=== PATIENT | female | born 1970 | race Caucasian/White ===

== ENCOUNTER → 2024-01-14 16:25 | Outpatient (REF) | payer OTHER, SELFPAY | LOC: HWRAD 16:25 | PROVIDERS: ATTENDING PHYSICIAN Student in an Organized Health Care Education/Training Program | DX: S60.012A Contusion of left thumb without damage to nail, initial encounter (principal) | CPT/HCPCS: 73130 ==

== ENCOUNTER → 2024-02-24 18:15 | Outpatient (REF) | payer OTHER, SELFPAY | LOC: RAD 18:15 | PROVIDERS: ATTENDING PHYSICIAN Obstetrics & Gynecology; FAMILY PHYSICIAN Student in an Organized Health Care Education/Training Program | DX: N92.4 Excessive bleeding in the premenopausal period (principal) | CPT/HCPCS: 76830; 76856 ==

== ENCOUNTER → 2024-05-26 14:21 | Outpatient (REF) | payer OTHER, SELFPAY | LOC: RAD 14:21 | PROVIDERS: ATTENDING PHYSICIAN Internal Medicine | DX: R10.30 Lower abdominal pain, unspecified (principal) | CPT/HCPCS: 74177; Q9967 ==

== ENCOUNTER 2024-06-01 19:27 | Inpatient (IN) | payer OTHER, SELFPAY ==
[2024-06-01 12:18] VITALS: BP 143/83
--- NOTE | 2024-06-01 13:24 | ED.GENMED ---
History of Present Illness
<Leola Linares PA-C - Last Filed: 06/01/24 21:58>
General
Chief Complaint: Abdominal Symptoms
Source: patient
Exam Limitations: none
Time Seen by Provider: 06/01/24 13:24
Nursing documentation reviewed up to this point in time: agreed with
History of Present Illness
History of Present Illness:
This is a 53-year-old female with past medical history of endometriosis 3 weeks status post hysterectomy presents emergency department today with concerns of abdominal pain. Patient states that this all started a few months ago when she started
having upper abdominal pain and discomfort. Patient does have a history of endometriosis and she did recently have a hysterectomy however she had persistent pain. Patient was referred to a sql developer and had a CAT scan done of her abdomen
as outpatient approximately 7 days ago which showed ileal ileal intussusception without a discrete leak point. Patient follows with Dr. Wall with [facility] and was scheduled to have an upper endoscopy to identify a lead point
in June. However, patient notes that since then, her pain has gotten significantly worse and patient reports that while the pain is constant, she attempts to eat anything this makes the pain severe. Patient reports that she is only eaten 1 egg
per day and not all she can tolerate because of the pain. Patient reports that the pain wakes her up at night. Patient states that she has lost weight this past week because of it. Patient denies any nausea or vomiting, fevers or chills, dark
tarry stools. Patient states that she has had bouts of diarrhea with this as well. Patient states that the pain radiates to her back. Patient states that the pain is worse when she lays down. Patient states at times the pain will radiate into
her chest. Patient denies any shortness of breath.
Past History
<Leola Linares PA-C - Last Filed: 06/01/24 21:58>
Past History
ED Past Medical History: Asthma (Exercised induced)
ED Past Surgical History: (twice) and Other (Partial Thyroidectomy)
Social History
Tobacco: Non-smoker
Alcohol: Occasional
Personal:
Living: with family
Review of Systems
<Leola Linares PA-C - Last Filed: 06/01/24 21:58>
Review of Systems
All Other Systems: ROS reviewed and negative except as documented in HPI and ROS
Phy Exam
<Leola Linares PA-C - Last Filed: 06/01/24 21:58>
Physical Exam
Physical Exam:
General: Patient is well appearing and in no acute distress; non-toxic
Skin: Warm and dry, no rashes or lesions
Head: Normocephalic, atraumatic
Eyes: Sclera non-icteric. EOMs intact.
Cardiac: Regular rate and rhythm, no murmurs
Pulm: Normal respiratory effort, no wheezes, rales, or rhonchi
Abdomen: Diffuse abdominal tenderness to palpation worse in the epigastric area, no palpable abdominal mass
Neuro: CN II-XII intact, no focal neurologic deficits.
Psychiatric: Appropriate mood and affect.
Course
<Leola Linares PA-C - Last Filed: 06/01/24 21:58>
Orders/Labs/Results
Orders:
Orders
06/01/24 Breakfast
NPO
Allow oral meds: Yes
Allow clear liquids: Sips of Clears
NPO with Ice Chips: Yes
06/01/24 13:38
Ketorolac [Toradol] 30 mg IV NOW STA
Ondansetron Injectable [Zofran] 4 mg IV NOW STA
06/01/24 13:45
Iohexol [Omnipaque] See Protocol PO NOW STA
06/01/24 13:46
CT Abd/pel W Iv And Oral Contr Urgent
Comment:
Reason For Exam: diffuse belly pain, known intussusception
06/01/24 13:49
Complete Blood Count/With Diff Urgent
Comprehensive Metabolic Panel Urgent
Lipase Urgent
06/01/24 17:02
Ibuprofen [Motrin] 600 mg PO NOW STA
06/01/24 18:39
0.9% Sodium Chloride 1000 ml [Nss] 1,000 ml IV BOLUS
HYDROmorphone [Dilaudid] 0.5 mg IV NOW STA
06/01/24 19:11
Admit/Transfer Patient As Directed
Co-Sign Provider:
Level of Care: Inpatient admission
Assign to:: Medical/Surgical
Physician / Group: [facility]
Diagnosis: Intussusception
Reason for Hospitalization: IVFs
Expected length of stay greater than two midnights?: Yes
ELOS- Estimated Length of Stay in days: 3
I certify the patient meets the requirements for IP care: Yes
06/01/24 19:12
Code Status As Directed
Resuscitation Status: Full Code
PRN Pain Medication Management As Directed
May give lesser potent ordered pain med per pt: Yes
preference::
Protocol:: Medication orders for pain may be administered in a
manner that supports deferring to patient preference
when the pt is:
- Requesting an ordered lesser potent pain medication.
Least to most potent pain medications are defined
as: acetaminophen < NSAID < tramadol < opioids
(morphine, oxycodone, hydromorphone).
- Requesting a lesser dose of the same medication IF
ORDERED.
- Requesting a less intrusive route of administration
if both routes are prescribed by the provider (PO <
IV).
06/01/24 20:15
Acetaminophen 1000MG/100Ml [Ofirmev] 1,000 mg in 100 ml IV Q6HPRN
Acetaminophen IV Indication:: Ileus/Delayed Bowel Func.
Dextrose 5%/0.45%Sodchl 1000ML [D5/0.45%NaCl] 1,000 ml IV 100 mls/hr
HYDROmorphone [Dilaudid] 0.25 mg IV Q3HPRN PRN
Ketorolac [Toradol] 15 mg IV Q8HPRN PRN
Ondansetron Injectable [Zofran] 4 mg IV Q6HPRN PRN
06/01/24 20:15
SURGICAL CONSULT Routine
Consulting Provider: Wicho Boothe
Was physician already notified: Yes
Activity As Directed
Activity Level: Out of Bed-Early Mobility
With Assistance
I&O [Intake/ Output] As Directed
Frequency: q12h
Vital Signs As Directed
Frequency: Per unit guidelines
DX Deep Vein Thrombosis Video Routine
06/02/24 06:00
Basic Metabolic Panel IN AM
Complete Blood Count/No Diff IN AM
06/02/24 18:00
Enoxaparin Sodium [Lovenox] 40 mg SC QPM
Abnormal Lab Results
06/01/24
13:49
MCH 26.6 L pg
(27.0-31.0)
MCHC 31.9 L g/dL
(33.0-37.0)
Plt Count 550 H 10^3/uL
(130-400)
Absolute Neuts (auto) 7.5 H 10^3/uL
(1.4-6.5)
06/01/24 13:49
06/01/24 13:49
Vital Signs
Initial and Last Documented VS:
Initial Vital Signs
Temp Pulse Resp BP Pulse Ox
98.4 F 65 16 143/83 99
06/01/24 12:18 06/01/24 12:18 06/01/24 12:18 06/01/24 12:18 06/01/24 12:18
Last Documented Vital Signs
Temp Pulse Resp BP Pulse Ox
98.2 F 62 18 159/88 100
06/01/24 20:30 06/01/24 20:30 06/01/24 20:30 06/01/24 20:30 06/01/24 20:30
<Beau Covington Nati, DO - Last Filed: 06/01/24 18:50>
Orders/Labs/Results
Orders:
Orders
06/01/24 Breakfast
NPO
Allow oral meds: Yes
Allow clear liquids: Sips of Clears
NPO with Ice Chips: Yes
06/01/24 13:38
Ketorolac [Toradol] 30 mg IV NOW STA
Ondansetron Injectable [Zofran] 4 mg IV NOW STA
06/01/24 13:45
Iohexol [Omnipaque] See Protocol PO NOW STA
06/01/24 13:46
CT Abd/pel W Iv And Oral Contr Urgent
Comment:
Reason For Exam: diffuse belly pain, known intussusception
06/01/24 13:49
Complete Blood Count/With Diff Urgent
Comprehensive Metabolic Panel Urgent
Lipase Urgent
06/01/24 17:02
Ibuprofen [Motrin] 600 mg PO NOW STA
06/01/24 18:39
0.9% Sodium Chloride 1000 ml [Nss] 1,000 ml IV BOLUS
HYDROmorphone [Dilaudid] 0.5 mg IV NOW STA
06/01/24 19:11
Admit/Transfer Patient As Directed
Co-Sign Provider:
Level of Care: Inpatient admission
Assign to:: Medical/Surgical
Physician / Group: [facility]
Diagnosis: Intussusception
Reason for Hospitalization: IVFs
Expected length of stay greater than two midnights?: Yes
ELOS- Estimated Length of Stay in days: 3
I certify the patient meets the requirements for IP care: Yes
06/01/24 19:12
Code Status As Directed
Resuscitation Status: Full Code
PRN Pain Medication Management As Directed
May give lesser potent ordered pain med per pt: Yes
preference::
Protocol:: Medication orders for pain may be administered in a
manner that supports deferring to patient preference
when the pt is:
- Requesting an ordered lesser potent pain medication.
Least to most potent pain medications are defined
as: acetaminophen < NSAID < tramadol < opioids
(morphine, oxycodone, hydromorphone).
- Requesting a lesser dose of the same medication IF
ORDERED.
- Requesting a less intrusive route of administration
if both routes are prescribed by the provider (PO <
IV).
06/01/24 20:15
Acetaminophen 1000MG/100Ml [Ofirmev] 1,000 mg in 100 ml IV Q6HPRN
Acetaminophen IV Indication:: Ileus/Delayed Bowel Func.
Dextrose 5%/0.45%Sodchl 1000ML [D5/0.45%NaCl] 1,000 ml IV 100 mls/hr
HYDROmorphone [Dilaudid] 0.25 mg IV Q3HPRN PRN
Ketorolac [Toradol] 15 mg IV Q8HPRN PRN
Ondansetron Injectable [Zofran] 4 mg IV Q6HPRN PRN
06/01/24 20:15
SURGICAL CONSULT Routine
Consulting Provider: Wicho Boothe
Was physician already notified: Yes
Activity As Directed
Activity Level: Out of Bed-Early Mobility
With Assistance
I&O [Intake/ Output] As Directed
Frequency: q12h
Vital Signs As Directed
Frequency: Per unit guidelines
DX Deep Vein Thrombosis Video Routine
06/02/24 06:00
Basic Metabolic Panel IN AM
Complete Blood Count/No Diff IN AM
06/02/24 18:00
Enoxaparin Sodium [Lovenox] 40 mg SC QPM
Abnormal Lab Results
06/01/24
13:49
MCH 26.6 L pg
(27.0-31.0)
MCHC 31.9 L g/dL
(33.0-37.0)
Plt Count 550 H 10^3/uL
(130-400)
Absolute Neuts (auto) 7.5 H 10^3/uL
(1.4-6.5)
06/01/24 13:49
06/01/24 13:49
Vital Signs
Initial and Last Documented VS:
Initial Vital Signs
Temp Pulse Resp BP Pulse Ox
98.4 F 65 16 143/83 99
06/01/24 12:18 06/01/24 12:18 06/01/24 12:18 06/01/24 12:18 06/01/24 12:18
Last Documented Vital Signs
Temp Pulse Resp BP Pulse Ox
98.2 F 62 18 159/88 100
06/01/24 20:30 06/01/24 20:30 06/01/24 20:30 06/01/24 20:30 06/01/24 20:30
Lewlt;Leola Linares PA-C - Last Filed: 06/01/24 21:58>
MDM/Problems Addressed
Differential Diagnosis Includes:
ddx include small bowl obstruction, hiatal hernia, pancreatitis, GERD
MDM/Problems Addressed:
53-year-old female with past medical history of endometriosis presents to emergency department with acute worsening of upper abdominal pain that she has had for few months now. A week ago, she had CAT scan done as an outpatient with Dr. Wall
for any symptoms and was found to have ileoileal intussusception without discrete lead point. Patient states that pain is gotten significantly worse. Spoke with sql developer on-call, will plan to repeat CAT scan with oral contrast. Patient
states that she has been using ibuprofen and Tylenol at home without relief, she did take a tramadol last night which did help. Did offer patient Toradol or morphine via IV for pain however patient is declining this at this time.
CBC significant for high platelet count, patient is aware of this, being worked up
CT scan shows intussusception with lead point being small bowel mass. Discussed findings with gastroenterology on-call. Discussed findings with general surgery on-call. Patient will be admitted to hospital and surgery will see her tomorrow
morning possibly operate. Patient referred for admission.
<Leola Linares PA-C - Last Filed: 06/01/24 21:58>
*Pulse Oximetry
Patient hypoxic: no
*Critical Care Note
Total Time (30-74mins, 75-104mins- exclusive of procedures): Not Applicable
Data Reviewed
Review of Other/Old Records Reveals: Records (Reviewed ER physician documentation from 09/25/2010 patient seen for)
Source: patient and records
ED Attending Note
<Leola Linares PA-C - Last Filed: 06/01/24 21:58>
-
Portions of this chart may have been created with voice recognition software.� Occasional wrong word or��sound alike� substitutions may have occurred due to the inherent limitations of voice recognition software.
<Beau Damian DO - Last Filed: 06/01/24 18:50>
ED Attending Note
Patient seen and examined by attending physician: Yes
I performed the substantive portion of visit, reviewed & personally made and approve the management plan that is documented in note by myself or LEIGH.: Yes
ED Attending Note:
I evaluated the patient at bedside. The patient intermittently appears uncomfortable. Will give low-dose of Dilaudid. Plan is for admission to the hospital.
Discharge Plan
Departure
Patient Disposition: Admit
Date of Disposition: 06/01/24
Time of Disposition: 18:38
Admit to: Med/Surg
Presentation/result/management discussed w/ accepting MD/DO: Hospitalist
Patient with high blood pressure during this ER visit?: Yes
Condition: Fair
Discharge Problem:
Intussusception of small bowel, Small bowel mass
Interventions
Interventions:
*Risk Screen - Suicide Last Done: 06/01/24 12:18
*General Assessment Last Done: 06/01/24 12:18
*Neglect/Abuse Screening Last Done: 06/01/24 12:18
*ED- Fall Risk Assessment Last Done: 06/01/24 14:08
*ED COVID-19 Vaccine History Last Done: 06/01/24 14:08
*Nursing Disposition Last Done: 06/01/24 20:06
NI-Wafajh-[facility] Assessment Last Done: 06/01/24 14:08
Discharge Date and Time
Discharge Date/Time: 06/01/24 20:07
[2024-06-01] MEDS: OMNIPAQUE 50 ML PO (13:55)
[2024-06-01 13:57] LABS: % Basophils 0.8 % (0-2); % Eosinophils 0.9 % (0-6); % Immature Granulocytes 0.3 % (0-0.5); % Lymphocytes 21.5 % (20.5-51.1); % Monocytes 5.5 % (1.7-9.3); Absolute Basophils 0.1 10^3/uL (0-0.2); Absolute Eosinophils 0.1 10^3/uL (0-0.7); Absolute Lymphocytes 2.3 10^3/uL (1.2-3.4); Absolute Monocytes 0.6 10^3/uL (0.1-0.6); Absolute Neutrophils 7.5 10^3/uL (1.4-6.5); Hematocrit 38.5 % (37.0-47.0); Hemoglobin 12.3 g/dL (12.0-16.0); Mean Corp Hgb Conc. 31.9 g/dL (33.0-37.0); Mean Corpuscular Hgb 26.6 pg (27.0-31.0); Mean Corpuscular Volume 83.2 fL (81.0-99.0); Mean Platelet Volume 9.4 fL (7.4-10.4); Nucleated Red Blood Cells % 0 %; Platelet Count 550 10^3/uL (130-400); Red Blood Cell Count 4.63 10^6/uL (4.20-5.40); Red Cell Dist. Width 14.5 % (11.5-14.5); White Blood Cell Count 10.5 10^3/uL (4.8-10.8)
[2024-06-01 14:12] LABS: ALT (SGPT) 16 U/L (0-35); AST (SGOT) 22 U/L (14-36); Albumin 4.8 g/dl (3.5-5.0); Alkaline Phosphatase 85 U/L (38-126); Blood Urea Nitrogen 8 mg/dl (7-17); Calcium 10.2 mg/dl (8.4-10.2); Carbon Dioxide 29 mmol/L (22-30); Chloride 101 mmol/L (98-107); Glucose 85 mg/dl (70-99); Lipase 69 U/L (23-300); Potassium 4.7 mmol/L (3.5-5.1); Sodium 141 mmol/L (135-145); Total Bilirubin 0.5 mg/dl (0.2-1.3); Total Protein 7.7 g/dl (6.3-8.2); eGFR > 60.00
[2024-06-01 15:14] VITALS: BP 136/85
[2024-06-01] MEDS: MOTRIN 600 MG PO (17:05)
[2024-06-01 17:06] VITALS: BP 141/84
[2024-06-01] MEDS: NSS 1000 IV (18:45)
[2024-06-01] MEDS: DILAUDID 0.5 MG IV ×2 (18:45→22:52)
--- NOTE | 2024-06-01 19:10 | HPS.HSE ---
Family Physician
-
Family Physician: Daisy Freeman MD, Resident
Chief Complaint
-
Abdominal Pain
History of Present Illness
Patient is a 53 y/o female who presents with abdominal pain. Patient underwent TONE-BSO 3 weeks ago. Patient reports persistent abdominal pain since the surgery. She describes a twisting sensation in her abdomen. She reports poor oral intake
since surgery. She reports bouts of diarrhea. She denies fever.
Medical History
Past Medical History
Past Medical History: Reports Other
Additional Past Medical History:
Asthma
Endometriosis
Past Surgical History: Reports Other
Additional Past Surgical History:
Partial Thyroidectomy
TONE-BSO
Social History
Tobacco: Former Smoker (Quit many years ago)
Alcohol: Occasional
Family History
Family History: Not pertinent
Allergies / Home Medications
Allergies reflects when Allergies were last updated in [employer].
Home Medications with original date entered in [employer]
Allergy/Medication List:
Allergies
Allergy/AdvReac Type Severity Reaction Status Date / Time
bees Allergy Anaphylaxis Uncoded 09/25/10 17:42
NKA - No Known Allergies Allergy Unknown Uncoded 09/25/10 17:42
seasonal allergies Allergy nasal Uncoded 09/25/10 17:42
symptoms
Home Medications
acyclovir 5 % topical ointment 1 applic topical DAILYPRN PRN cold sores 06/01/24
aluminum-mag hydroxide-simethicone 200 mg-200 mg-20 mg/5 mL oral susp 10 ml PO Q3HPRN PRN gas 06/01/24
ascorbic acid (vitamin C) 500 mg tablet (Vitamin C) 500 mg PO DAILY 06/01/24
cetirizine 10 mg tablet 10 mg PO DAILY 06/01/24
estradiol 0.01% (0.1 mg/gram) vaginal cream 1 appful vaginal SUWE 06/01/24
ferrous sulfate 325 mg (65 mg iron) tablet 325 mg PO DAILY 06/01/24
ibuprofen 600 mg tablet 600 mg PO Q6HPRN PRN mild pain 06/01/24
simethicone 80 mg chewable tablet 80 mg PO Q3HPRN PRN gas 06/01/24
tramadol 50 mg tablet 50 mg PO Q6HPRN PRN moderate pain 06/01/24
Review of Systems
-
A 12 point ROS was completed and negative except as noted: Yes
Constitutional: Denies Fever
Respiratory: Denies Cough or Trouble Breathing
Cardiac: Denies Chest Pain or Palpitations
Physical Exam
Vital Signs
Vital Signs
Temp Pulse Resp BP Pulse Ox
98.4 F 78 16 141/84 98
06/01/24 12:18 06/01/24 17:06 06/01/24 17:06 06/01/24 17:06 06/01/24 17:06
Physical Exam
General: Comfortable (Following Dilaudid given prior to my evaluation) and Conversant
HEENT: Anicteric and Moist mucous membranes
Respiratory: Clear and Non Labored Respirations
Cardiac: S1/S2 and Regular Rhythm
GI: Soft and Tender (Mild throughout without rebound or guarding)
Rectal: Deferred by Provider
Musculoskeletal: No Clubbing, No Cyanosis and No Edema
Skin: Warm and Dry
Neuro: Awake, Alert, Oriented and Nonfocal/grossly intact
Psych: Calm
Laboratory Results
-
06/01/24 13:49
06/01/24 13:49
Laboratory Results
Total Bilirubin 0.5 mg/dl (0.2-1.3) 06/01/24 13:49
AST 22 U/L (14-36) 06/01/24 13:49
ALT 16 U/L (0-35) 06/01/24 13:49
Alkaline Phosphatase 85 U/L (38-126) 06/01/24 13:49
Lipase 69 U/L (23-300) 06/01/24 13:49
Data Reviewed
-
CT Scan: Report Reviewed by me
Lab Data: Labs Reviewed by me
Impression/Plan
-
Intussusception
-Consult General Surgery
-Continue NPO/IVFs
-Continue Zofran prn nausea
-Continue acetaminophen prn mild pain, Toradol prn moderate and hydromorphone prn severe pain
Endometriosis s/p TONE-BSO ~3 weeks ago
DVT proph: Lovenox
Code Status: Full Code
--- NOTE | 2024-06-01 19:36 | W.PN.UPDATE ---
Update Note
Progress Note Update
This is an addendum to the H&P written by Ann Munoz on 06/01/2024.� Patient seen and examined independently with PA.
53-year-old female past medical history of endometriosis status post hysterectomy 3 weeks ago, asthma, presenting with persistent abdominal pain since hysterectomy 3 weeks ago.� Poor p.o. intake.� Bouts of diarrhea.
CT abdomen pelvis shows ileal ileal intussusception, rounded soft tissue mass measuring 2 cm likely the lead point. A small polypoid mass can be identified within the small bowel loop and enlargement of this polyp/mass is likely resulted in the
intussusception.
N.p.o. IV fluids.� General surgery consulted.
[2024-06-01 20:30] VITALS: BP 159/88; BMI 24.6
[2024-06-01] MEDS: DILAUDID 0.25 MG IV (20:54)
[2024-06-01] MEDS: TORADOL 15 MG IV (22:02)
--- NOTE | 2024-06-01 22:30 | PTCARENOTE ---
Patient received 0.25mg IV Dilaudid for pain in abdomen. Patient also recieved Toradol IV after dose of Dilaudid. Both medications ineffective in relieving pain. Patient unable to lay in bed r/t discomfort. RAFAT Domínguez made aware. Order received
to increase Dilaudid to 0.5mg IV PRN. Care ongoing, will continue to monitor.
[2024-06-01] MEDS: D5/0.45%NACL 1000 IV (22:54)
[2024-06-01 23:00] VITALS: BP 134/73
--- NOTE | 2024-06-01 23:00 | PTCARENOTE ---
Patient received from ED via stretcher. Patient able to ambulate independently into room. Steady gait noted. Patient's family at bedside. POC reviewed including NPO status and possible surgery. Pain management discussed with patient, along with
potential side effects of Dilaudid. Patient verbalized a good understanding of all teaching. IVF started. Mouth swabs provided to patient for comfort. Care ongoing, will continue to monitor.
[2024-06-02] VITALS (13 sets, daily range): BP systolic 120–162; BP diastolic 69–101; BMI 24.6
--- NOTE | 2024-06-02 00:45 | PTCARENOTE ---
Patient c/o pain in abdomen. Patient unable to get another dose of Dilaudid 0.5mg IV for another 50 minutes. RAFAT Domínguez notified. Order received for breakthrough IV Dilaudid PRN. Care ongoing, will continue to monitor.
[2024-06-02] MEDS: DILAUDID 0.25 MG IV ×4 (01:28→22:10)
[2024-06-02] MEDS: DILAUDID 0.5 MG IV ×3 (03:01→20:16)
[2024-06-02 05:46] LABS: Hematocrit 32.4 % (37.0-47.0); Hemoglobin 10.3 g/dL (12.0-16.0); Mean Corp Hgb Conc. 31.8 g/dL (33.0-37.0); Mean Corpuscular Hgb 26.8 pg (27.0-31.0); Mean Corpuscular Volume 84.2 fL (81.0-99.0); Mean Platelet Volume 9.2 fL (7.4-10.4); Platelet Count 414 10^3/uL (130-400); Red Blood Cell Count 3.85 10^6/uL (4.20-5.40); Red Cell Dist. Width 14.4 % (11.5-14.5)
[2024-06-02 06:16] LABS: Blood Urea Nitrogen 8 mg/dl (7-17); Calcium 9.1 mg/dl (8.4-10.2); Carbon Dioxide 28 mmol/L (22-30); Chloride 102 mmol/L (98-107); Estimated Creatinine Clearance 78 ml/min; Glucose 102 mg/dl (70-99); Potassium 4.1 mmol/L (3.5-5.1); Sodium 139 mmol/L (135-145); eGFR > 60.00
--- NOTE | 2024-06-02 07:39 | W.PN.HOSP.TC ---
Today's Communication/Plan
-
Surgery today
See plan
Assessment / Plan
Assessment / Plan
Physical Exam
General: Not in acute distress
HEENT: Normocephalic. Moist mucous membranes
Respiratory: Clear to Auscultation Bilaterally
Cardiac: S1/S2 and Regular Rate and Rhythm
GI: Soft and Tender (Mild throughout without rebound or guarding). Bowel sounds present.
Musculoskeletal: No Cyanosis and No Edema
Skin: Warm and Dry
Neuro: Awake, Alert, Oriented and Nonfocal/grossly intact
Psych: Calm
Assessment/Plan
53-year-old female with past medical history of endometriosis status post hysterectomy (TONE-BSO) 3 weeks prior to presentation, asthma, presenting with persistent abdominal pain since hysterectomy 3 weeks ago. Poor p.o. intake. Bouts of diarrhea.
CT abdomen pelvis shows ileal ileal intussusception, rounded soft tissue mass measuring 2 cm likely the lead point. A small polypoid mass can be identified within the small bowel loop and enlargement of this polyp/mass is likely resulted in the
intussusception. N.p.o. IV fluids. General surgery consulted.
Intussusception
-Consult General Surgery -- going for surgery today
-Continue NPO/IVFs
-Continue antibiotics
-Continue Zofran prn nausea
-Continue acetaminophen prn mild pain, Toradol prn moderate and hydromorphone prn severe pain
Endometriosis s/p TONE-BSO ~3 weeks ago
DVT Prophylaxis: Lovenox
Code Status: Full Code
Anticipated Discharge: 24 - 48 hours
Subjective/Interval History
-
Date of Service: June 02, 2024
Patient was seen and examined. She reported still having some abdominal pain and headache.
Objective Data
-
Labs:
Laboratory Results
06/02/24
05:15
WBC 8.0
Hgb 10.3 L
Hct 32.4 L
Plt Count 414 H D
Sodium 139
Potassium 4.1
Chloride 102
Carbon Dioxide 28
BUN 8
Creatinine 0.6
Glucose 102 H
Calcium 9.1
Vital Signs:
Vital Signs
Temp Pulse Resp BP Pulse Ox
97.7 F 58 18 134/73 96
06/01/24 23:00 06/01/24 23:00 06/01/24 23:00 06/01/24 23:00 06/01/24 23:00
I&O
06/01/24 06/02/24 06/03/24
06:59 06:59 06:59
Intake Total 0 / 0
Balance 0 / 0
--- NOTE | 2024-06-02 08:33 | CON.GS ---
Medical History
-
Chief Complaint: Abdominal pain
History of Present Illness:
Patient is a 53 yo F with a PMH notable for endometriosis s/p robotic total abdominal hysterectomy with bilateral salpingo-oophorectomy approximately 3 weeks ago at [facility], s/p x 2, and s/p partial thyroidectomy who presents
with persistent crampy abdominal pain.
Ms. Rivas states that her symptoms began back in October 2023, though were much milder at that time she reports intermittent crampy both lower and upper abdominal discomfort. She also reports heavy menses and cramping associated with her period.
She initially sought treatment through her PCP who ultimately referred her to her [employer] with the thought that her most of her symptoms were related to endometriosis. She subsequently underwent a recent robotic TONE and BLSO. Postoperatively she
states that her symptoms have persisted and worsened over the past 2 weeks. She went underwent GI evaluation by Dr. Wall and had a CT scan which demonstrated a distal ileal intussusception. Her symptoms worsened over the past 24 to 48 hours
prompting presentation to the ER. Repeat CT scan again identified intussuscepted distal ileum with question of a intraluminal mass causing a leak point. No evidence of pneumatosis or significant free air around the area of her intussuscepted
segment. She does continue to have free air within the subcutaneous tissues as well as scattered air retroperitoneally bilaterally related to her recent surgery. She reports intermittent bouts of severe crampy abdominal pain. Occasional nausea.
She continues to pass flatus and move her bowels. No fevers. She denies any family history notable for GI issues. No prior colonoscopies or EGDs.
Past Medical History
Past Medical History: Other (Endometriosis)
Past Surgical History: , Gynecological (Robotic total abdominal hysterectomy and bilateral salpingo-oophorectomy) and Other (Partial thyroidectomy)
Social History
Tobacco: Former Smoker
Alcohol: Occasional
Drug: None
Personal:
Living: With Family
Family History
Family History: Reviewed & Noncontributory
Allergies / Home Medications
Allergy/AdvReac Type Severity Reaction Status Date / Time
pollen extracts Allergy SEASONAL-nasal Verified 06/01/24 22:25
symptoms
venom-honey bee Allergy Anaphylaxis Verified 06/01/24 22:25
�Medication �Instructions �Recorded �Confirmed �Type
acyclovir 5 % topical ointment 1 applic topical DAILYPRN PRN cold 06/01/24 06/01/24 History
sores
aluminum-mag hydroxide-simethicone 10 ml PO Q3HPRN PRN gas 06/01/24 06/01/24 History
200 mg-200 mg-20 mg/5 mL oral susp
ascorbic acid (vitamin C) 500 mg 500 mg PO DAILY 06/01/24 06/01/24 History
tablet (Vitamin C)
cetirizine 10 mg tablet 10 mg PO DAILY 06/01/24 06/01/24 History
estradiol 0.01% (0.1 mg/gram) 1 appful vaginal SUWE 06/01/24 06/01/24 History
vaginal cream
ferrous sulfate 325 mg (65 mg 325 mg PO DAILY 06/01/24 06/01/24 History
iron) tablet
ibuprofen 600 mg tablet 600 mg PO Q6HPRN PRN mild pain 06/01/24 06/01/24 History
simethicone 80 mg chewable tablet 80 mg PO Q3HPRN PRN gas 06/01/24 06/01/24 History
tramadol 50 mg tablet 50 mg PO Q6HPRN PRN moderate pain 06/01/24 06/01/24 History
Review of Systems
-
A 10 point review of systems was completed, and was negative except as per HPI.
Physical Exam
Vital Signs
Temp Pulse Resp BP Pulse Ox
97.7 F 63 16 123/69 100
06/02/24 08:02 06/02/24 08:02 06/02/24 08:02 06/02/24 08:02 06/02/24 08:02
06/01/24 06/02/24 06/03/24
06:59 06:59 06:59
Actual Weight 57.238 kg
Body Mass Index (BMI) 24.6
Lab Results
06/02/24 05:15
06/02/24 05:15
WBC 8.0 10^3/uL (4.8-10.8) 06/02/24 05:15
Hgb 10.3 g/dL (12.0-16.0) L 06/02/24 05:15
Hct 32.4 % (37.0-47.0) L 06/02/24 05:15
Plt Count 414 10^3/uL (130-400) H D 06/02/24 05:15
Abs Immat Gran (auto) 0.0 10^3/uL (0-0.05) 06/01/24 13:49
Neutrophils % 71.0 % (42.2-75.2) 06/01/24 13:49
Physical Exam
General: Well Developed, Well Nourished and Pain
HEENT: Normocephalic and Anicteric
Respiratory: Non Labored Respirations
Cardiac: Regular Rhythm
GI: Soft, Non Distended, Tender (Lower abdomen), Incisions (Well-healed) and Other (Nonperitoneal (no rebound or guarding))
Musculoskeletal: No Edema
Skin: Warm and Dry
Neuro: Nonfocal/Grossly Intact
Data Reviewed
-
CT Scan: Image Personally Visualized and interpreted and Report Reviewed by me
Labs: Labs Reviewed by me
Old Records: Reviewed
Assessment / Plan
-
Patient is a 53 yo F p/w partial SBO symptoms related to distal ileal intussusception
The natural history and pathophysiology of intussusceptions was discussed. Given the increased frequency of CT scan imaging these are sometimes incidental findings related to peristalsis. However, this is unlikely to be an incidental finding given
her protracted symptoms which can be attributed to a intermittent or persistent intussusception, as well as her persistent intussusception on multiple CT scans. We discussed her CT scan findings concerning for a possible intraluminal mass as a lead
point (a more common cause of intussusception in adults). Though this is not an ideal time for reoperation (approximately 3 weeks out from her recent robotic hysterectomy), given her persistent symptoms and segment of intussusception would
recommend operative intervention to alleviate partial obstructive symptoms and prevent potential further ongoing ischemia with potential perforation. Patient and agreed and willing to proceed.
Plan for laparoscopic possible open bowel resection (small bowel only versus ileocolic). The procedure itself, as well as the risks, benefits, and alternatives was discussed. Specifically, we discussed the risks of bleeding, infection, injury to
surrounding structures (bowel, bladder), anastomotic leak, need for partial colectomy, hernia formation, and general anesthetic complications. Typical postprocedural recovery was discussed. All questions answered. Consent signed.
-- Laparoscopic possible open bowel resection
-- NPO, IVF
-- Antibiotics: Zosyn for translocation and GI coverage
-- Pain control: Tylenol and IV Dilaudid PRN
--- NOTE | 2024-06-02 08:49 | W.SUR.PREOP ---
Pre-Operative Surgical Note
-
I have examined this patient prior to the performance of the scheduled procedure.
The patient's condition is unchanged from the time of the current History and
Physical and the patient is able to undergo the scheduled procedure.
[2024-06-02] MEDS: ZOSYN 50 IV ×3 (09:25→22:09)
[2024-06-02] MEDS: TORADOL 15 MG IV (10:32)
[2024-06-02] MEDS: D5/0.45%NACL 1000 IV (10:35)
--- NOTE | 2024-06-02 15:27 | CM ---
Alert awake oriented patient who lives with her Fareed in a 3 story home with 12 steps to enter and to bed/bathroom on first floor. She is independent in activates of daily living [employer].She is postop hysterectomy. She is for surgery today.
No VN in past . No SNF hx
Pharmacy [facility]
PCP Dr Freeman
PLAN Home with no needs
--- NOTE | 2024-06-02 18:37 | W.IMMPOSTOP ---
Surgical Immed Post Op Note
-
Primary Surgeon: Federica
Assisting Surgeon: MAGALYS Ibrahim
Pre-op Diagnosis: Small bowel intussusception
Post-op Diagnosis: Small bowel intussusception
Procedure Performed: Laparoscopic assisted small bowel resection, lysis of adhesions, open appendectomy
Anesthesia Type: General
Specimen / Cultures:
1. Segment of small bowel
2. Appendix
Estimated Blood Loss: 11 cc
Complications: None
Operative Findings:
1. Segment of distal ileum with 10 cm intussusception, healthy viable bowel, palpable polypoid intraluminal mass, resection with 5 cm margins, [id number] Josh stapled anastomosis with DEEPTI 80
2. Distal small bowel adhesion involving endometriosis and sigmoid colon, taken down sharply, no enterotomy or serosal tear, oversewn transversely for safety
3. Normal appearing appendix immediately in operative field taken with DEEPTI
[2024-06-02] MEDS: SUBLIMAZE 50 MCG IV ×2 (19:00→19:17)
[2024-06-02] MEDS: TORADOL 10 MG IV (19:16)
[2024-06-02] MEDS: NORMOSOL-R/PLASMALYTE-A 1000 IV (19:30)
[2024-06-02] MEDS: LOVENOX SC (20:08)
[2024-06-02] MEDS: D5/0.45%NACL IV (20:10)
[2024-06-02] MEDS: ZOFRAN 4 MG IV (20:15)
[2024-06-03] MEDS: DILAUDID 0.5 MG IV ×6 (00:15→21:32)
[2024-06-03] MEDS: ZOSYN 50 IV (03:23)
[2024-06-03 03:41] VITALS: BP 109/68
[2024-06-03] MEDS: D5/0.45%NACL IV (05:08)
[2024-06-03] MEDS: DILAUDID 0.25 MG IV ×2 (06:32→20:04)
--- NOTE | 2024-06-03 06:52 | W.PN.GS2 ---
Today's Communication / Plan
-
-- NPO, IVF
-- DC Sultana
-- No need for further abx
-- GI: PPI
-- OOB/ambulate, correct lytes
Assessment / Plan
-
Patient is a 53 yo F p/w partial SBO secondary to ileal intussusception related to an intra-luminal mass
POD#1 s/p laparoscopic assisted SBR, JUNE, and open appendectomy
AVSS
Labs pending
Clinically improved. No signs of return of bowel function. Would continue with NPO and ice chips for comfort only until return of bowel function.
-- NPO, IVF
-- Pain control: Tylenol, Toradol, IV Dilaudid PRN
-- DC Sultana
-- No need for further abx
-- DVT: Lovenox
-- GI: PPI
-- OOB/ambulate, correct lytes
Subjective Data
-
Date of Service: June 03, 2024
Imaging complaints, overall feels improved with less cramping pain. She does have some gas pains and distention. No nausea or vomiting. -1 BM. Afebrile.
Objective Data
-
Intake and Output
06/01/24 06/02/24 06/03/24
06:59 06:59 06:59
Intake Total 0 / 0 200 / 200
Output Total 725 / 725
Balance 0 / 0 -525 / -525
Intake:
Oral fluids 0 / 0
IV fluids (Total) 200 / 200
Normosol 200 / 200
Output:
Urine, Sultana 725 / 725
Other:
Number of approximated MODERATE 1
amounts of urine
Vital Signs
Temp Pulse Resp BP Pulse Ox
97.8 F 71 16 109/68 100
06/03/24 03:41 06/03/24 03:41 06/03/24 03:41 06/03/24 03:41 06/03/24 03:41
Calcium 9.1 mg/dl (8.4-10.2) 06/02/24 05:15
Total Bilirubin 0.5 mg/dl (0.2-1.3) 06/01/24 13:49
AST 22 U/L (14-36) 06/01/24 13:49
ALT 16 U/L (0-35) 06/01/24 13:49
Alkaline Phosphatase 85 U/L (38-126) 06/01/24 13:49
Total Protein 7.7 g/dl (6.3-8.2) 06/01/24 13:49
Albumin 4.8 g/dl (3.5-5.0) 06/01/24 13:49
Physical Exam
-
Gen: NAD
Abd: soft, mild tenderness, ND, non-peritoneal, incisions c/d/i - no erythema, ecchymosis or drainage, lower midline dressing with minimal shadowing
Patient has a sultana catheter: Yes
Patient has a central line: No
[2024-06-03 07:31] VITALS: BP 123/66
[2024-06-03] MEDS: NORMOSOL-R/PLASMALYTE-A IV (07:38)
--- NOTE | 2024-06-03 07:42 | PTCARENOTE ---
Per order and MD now, Antonella removed this AM. Pt updated, and understands teaching.
--- NOTE | 2024-06-03 07:56 | W.PN.HOSP.TC ---
Today's Communication/Plan
-
NPO, IV fluids
Stop Antibiotics
Pain control
Assessment / Plan
Assessment / Plan
Physical Exam
General: Not in acute distress
HEENT: Normocephalic. Moist mucous membranes
Respiratory: Clear to Auscultation Bilaterally
Cardiac: S1/S2 and Regular Rate and Rhythm
GI: Soft and Tender (Mild throughout without rebound or guarding). Bowel sounds present.
Musculoskeletal: No Cyanosis and No Edema
Skin: Warm and Dry
Neuro: Awake, Alert, Oriented and Nonfocal/grossly intact
Psych: Calm
Assessment/Plan
53-year-old female with past medical history of endometriosis status post hysterectomy (TONE-BSO) 3 weeks prior to presentation, asthma, presenting with persistent abdominal pain since hysterectomy 3 weeks ago. Poor p.o. intake. Bouts of diarrhea.
CT abdomen pelvis shows ileal ileal intussusception, rounded soft tissue mass measuring 2 cm likely the lead point. A small polypoid mass can be identified within the small bowel loop and enlargement of this polyp/mass is likely resulted in the
intussusception. N.p.o. IV fluids. General surgery consulted.
Intussusception Status Post Laparoscopic assisted small bowel resection, lysis of adhesions, open appendectomy
-Consult General Surgery, appreciate their evaluation
-Continue NPO/IVFs
-Stop antibiotics
-Continue Zofran prn nausea
-Continue acetaminophen prn mild pain, Toradol prn moderate and hydromorphone prn severe pain
-Small volume free air seen beneath the dome of the right hemidiaphragm on x-ray -- discussed this with surgeon, and he said this is expected after her surgery
simethicone, PPI and pain meds
-Can do Ativan if still pain issue
-Out of bed and ambulate
Endometriosis s/p TONE-BSO ~3 weeks ago
DVT Prophylaxis: Lovenox
Code Status: Full Code
Anticipated Discharge: > 48 hours
Subjective/Interval History
-
Date of Service: June 03, 2024
Patient was seen and examined. She reported severe right upper abdominal pain this morning, discussed with surgery, this is expected post-surgery, pain medications given with improvement in pain.
Objective Data
-
Labs:
Laboratory Results
06/03/24
06:00
WBC Pending
Hgb Pending
Hct Pending
Plt Count Pending
Sodium Pending
Potassium Pending
Chloride Pending
Carbon Dioxide Pending
BUN Pending
Creatinine Pending
Glucose Pending
Calcium Pending
Vital Signs:
Vital Signs
Temp Pulse Resp BP Pulse Ox
99.3 F 69 14 123/66 100
06/03/24 07:31 06/03/24 07:31 06/03/24 07:31 06/03/24 07:31 06/03/24 07:31
I&O
06/02/24 06/03/24 06/04/24
06:59 06:59 06:59
Intake Total 0 / 0 200 / 200
Output Total 725 / 725
Balance 0 / 0 -525 / -525
[2024-06-03 09:27] LABS: Hematocrit 32.1 % (37.0-47.0); Hemoglobin 10.3 g/dL (12.0-16.0); Mean Corp Hgb Conc. 32.1 g/dL (33.0-37.0); Mean Corpuscular Hgb 26.6 pg (27.0-31.0); Mean Corpuscular Volume 82.9 fL (81.0-99.0); Mean Platelet Volume 9.4 fL (7.4-10.4); Platelet Count 483 10^3/uL (130-400); Red Blood Cell Count 3.87 10^6/uL (4.20-5.40); Red Cell Dist. Width 14.3 % (11.5-14.5); White Blood Cell Count 10.3 10^3/uL (4.8-10.8)
[2024-06-03] MEDS: TORADOL 10 MG IV ×2 (09:47→16:01)
[2024-06-03 10:41] LABS: Blood Urea Nitrogen 8 mg/dl (7-17); Calcium 8.6 mg/dl (8.4-10.2); Carbon Dioxide 25 mmol/L (22-30); Chloride 100 mmol/L (98-107); Estimated Creatinine Clearance 78 ml/min; Glucose 66 mg/dl (70-99); Potassium 4.8 mmol/L (3.5-5.1); Sodium 137 mmol/L (135-145); eGFR > 60.00
[2024-06-03] MEDS: MYLICON 80 MG PO ×2 (12:08→20:12)
[2024-06-03] MEDS: PROTONIX 20 MG PO (12:08)
[2024-06-03 15:04] VITALS: BP 107/76
[2024-06-03] MEDS: NORMOSOL-R/PLASMALYTE-A 1000 IV (15:58)
[2024-06-03] MEDS: LOVENOX 40 MG SC (18:21)
[2024-06-03 23:15] VITALS: BP 127/64
[2024-06-03] MEDS: TUMS CHEWABLE TABLET 200 MG PO (23:30)
[2024-06-04] MEDS: DILAUDID 0.5 MG IV ×5 (01:26→23:10)
[2024-06-04] MEDS: NORMOSOL-R/PLASMALYTE-A 1000 IV ×2 (02:00→11:49)
[2024-06-04 05:48] LABS: Hematocrit 26.4 % (37.0-47.0); Hemoglobin 8.6 g/dL (12.0-16.0); Mean Corp Hgb Conc. 32.6 g/dL (33.0-37.0); Mean Corpuscular Hgb 26.8 pg (27.0-31.0); Mean Corpuscular Volume 82.2 fL (81.0-99.0); Mean Platelet Volume 9.1 fL (7.4-10.4); Platelet Count 367 10^3/uL (130-400); Red Blood Cell Count 3.21 10^6/uL (4.20-5.40); Red Cell Dist. Width 14.4 % (11.5-14.5); White Blood Cell Count 7.8 10^3/uL (4.8-10.8)
[2024-06-04 06:39] LABS: Blood Urea Nitrogen 10 mg/dl (7-17); Calcium 8.6 mg/dl (8.4-10.2); Carbon Dioxide 26 mmol/L (22-30); Chloride 102 mmol/L (98-107); Estimated Creatinine Clearance 78 ml/min; Glucose 80 mg/dl (70-99); Potassium 4.1 mmol/L (3.5-5.1); Sodium 137 mmol/L (135-145); eGFR > 60.00
[2024-06-04 07:50] VITALS: BP 132/79
--- NOTE | 2024-06-04 08:10 | W.PN.HOSP.TC ---
Today's Communication/Plan
-
Continue NPO and IV fluids
Awaiting return of bowel function
Pain has improved
Assessment / Plan
Assessment / Plan
Physical Exam
General: Not in acute distress
HEENT: Normocephalic. Moist mucous membranes
Respiratory: Clear to Auscultation Bilaterally
Cardiac: S1/S2 and Regular Rate and Rhythm
GI: Soft and Tender (Mild throughout without rebound or guarding). Bowel sounds present.
Musculoskeletal: No Cyanosis and No Edema
Skin: Warm and Dry
Neuro: Awake, Alert, Oriented and Nonfocal/grossly intact
Psych: Calm
Assessment/Plan
53-year-old female with past medical history of endometriosis status post hysterectomy (TONE-BSO) 3 weeks prior to presentation, asthma, presenting with persistent abdominal pain since hysterectomy 3 weeks ago. Poor p.o. intake. Bouts of diarrhea.
CT abdomen pelvis shows ileal ileal intussusception, rounded soft tissue mass measuring 2 cm likely the lead point. A small polypoid mass can be identified within the small bowel loop and enlargement of this polyp/mass is likely resulted in the
intussusception. N.p.o. IV fluids. General surgery consulted.
Intussusception Status Post Laparoscopic assisted small bowel resection, lysis of adhesions, open appendectomy on 06/02/24
Suspected post-op ileus
-Consult General Surgery, appreciate their evaluation
-Continue NPO/IVFs
-Stop antibiotics
-Continue Zofran prn nausea
-Continue acetaminophen prn mild pain, Toradol prn moderate and hydromorphone prn severe pain
-Small volume free air seen beneath the dome of the right hemidiaphragm on x-ray -- discussed this with surgeon, and he said this is expected after her surgery
-Simethicone, PPI and pain meds
-Can do Ativan if still pain issue
-Out of bed and ambulate
Endometriosis s/p TONE-BSO ~3 weeks ago
DVT Prophylaxis: Lovenox
Code Status: Full Code
Anticipated Discharge: > 48 hours
Subjective/Interval History
-
Date of Service: June 04, 2024
Patient was seen and examined. She reported continued pain in her abdomen, now 09/17, better than yesterday. She has not had any flatus or any bowel movements.
Objective Data
-
Labs:
Laboratory Results
06/04/24
05:27
WBC 7.8
Hgb 8.6 L
Hct 26.4 L
Plt Count 367 D
Sodium 137
Potassium 4.1
Chloride 102
Carbon Dioxide 26
BUN 10
Creatinine 0.5 L
Glucose 80
Calcium 8.6
Vital Signs:
Vital Signs
Temp Pulse Resp BP Pulse Ox
98.1 F 67 17 127/64 98
06/03/24 23:15 06/03/24 23:15 06/03/24 23:15 06/03/24 23:15 06/03/24 23:15
I&O
06/03/24 06/04/24 06/05/24
06:59 06:59 06:59
Intake Total 200 / 200 1000 / 1000
Output Total 725 / 725
Balance -525 / -525 1000 / 1000
[2024-06-04 08:22] VITALS: BP 132/79
[2024-06-04] MEDS: PROTONIX 20 MG PO (08:35)
[2024-06-04] MEDS: MYLICON 80 MG PO (08:38)
--- NOTE | 2024-06-04 09:50 | W.PN.GS2 ---
Today's Communication / Plan
-
-- Awaiting ROBF, NPO, IVF, ambulation
-- Recheck Hb this afternoon
Assessment / Plan
-
Patient is a 53 yo F p/w partial SBO secondary to ileal intussusception related to an intra-luminal mass
POD#2 s/p laparoscopic assisted SBR, JUNE, and open appendectomy
X-ray Abdomen (06/03): contrast into the descending colon from prior CT scan imaging, mildly dilated small bowel and gastric bubble.
AVSS
Labs with normal WBC, drift in Hb, normal lytes and kidney function
Likely expected post-op ileus; awaiting ROBF. Encourage ambulation.
-- NPO, IVF
-- Pain control: Tylenol, Toradol, IV Dilaudid PRN
-- Recheck Hb this afternoon
-- DVT: Lovenox
-- GI: PPI
-- OOB/ambulate, correct lytes
Subjective Data
-
Date of Service: June 04, 2024
Improved compared to yesterday morning with crampy abdominal pain. Mild belching, no nausea or vomiting. Denies any flatus or BMs. No fevers or chills. No dizziness or lightheadedness. Voiding. Ambulating.
Objective Data
-
Intake and Output
06/03/24 06/04/24 06/05/24
06:59 06:59 06:59
Intake Total 200 / 200 1000 / 1000
Output Total 725 / 725
Balance -525 / -525 1000 / 1000
Intake:
IV fluids (Total) 200 / 200 1000 / 1000
Normosol 200 / 200
Output:
Urine, Sultana 725 / 725
Other:
Number of approximated MODERATE 3
amounts of urine
Vital Signs
Temp Pulse Resp BP Pulse Ox
97.5 F 74 26 132/79 100
06/04/24 07:50 06/04/24 07:50 06/04/24 07:50 06/04/24 07:50 06/04/24 07:50
Lab Results
06/04/24 05:27
06/04/24 05:27
Calcium 8.6 mg/dl (8.4-10.2) 06/04/24 05:27
Total Bilirubin 0.5 mg/dl (0.2-1.3) 06/01/24 13:49
AST 22 U/L (14-36) 06/01/24 13:49
ALT 16 U/L (0-35) 06/01/24 13:49
Alkaline Phosphatase 85 U/L (38-126) 06/01/24 13:49
Total Protein 7.7 g/dl (6.3-8.2) 06/01/24 13:49
Albumin 4.8 g/dl (3.5-5.0) 06/01/24 13:49
Physical Exam
-
Gen: NAD
Abd: soft, mild/moderate tenderness, mild distension, tympany, non-peritoneal, incisions c/d/i - no erythema, ecchymosis or drainage, mild shadowing at lower midline
Patient has a sultana catheter: No
Patient has a central line: No
[2024-06-04] MEDS: TORADOL 10 MG IV ×2 (12:01→20:41)
[2024-06-04 13:58] LABS: Hematocrit 29.3 % (37.0-47.0); Hemoglobin 9.5 g/dL (12.0-16.0)
[2024-06-04 15:10] VITALS: BP 133/80
--- NOTE | 2024-06-04 15:50 | PTCARENOTE ---
Patient ambulating in room and halls with a steady gait. Patient with multiple loose, blood-tinged stools. Patient abdominal pain much improved after Toradol. at bedside.
[2024-06-04] MEDS: LOVENOX 40 MG SC (17:14)
[2024-06-05 00:04] VITALS: BP 109/58
[2024-06-05] MEDS: TORADOL 10 MG IV (03:13)
[2024-06-05 05:49] LABS: Hematocrit 26.9 % (37.0-47.0); Hemoglobin 8.8 g/dL (12.0-16.0); Mean Corp Hgb Conc. 32.7 g/dL (33.0-37.0); Mean Corpuscular Hgb 26.8 pg (27.0-31.0); Platelet Count 364 10^3/uL (130-400); Red Blood Cell Count 3.28 10^6/uL (4.20-5.40); Red Cell Dist. Width 14.1 % (11.5-14.5); White Blood Cell Count 6.8 10^3/uL (4.8-10.8)
[2024-06-05 06:13] LABS: Blood Urea Nitrogen 10 mg/dl (7-17); Calcium 9.2 mg/dl (8.4-10.2); Carbon Dioxide 27 mmol/L (22-30); Chloride 100 mmol/L (98-107); Estimated Creatinine Clearance 78 ml/min; Glucose 73 mg/dl (70-99); Sodium 138 mmol/L (135-145); eGFR > 60.00
--- NOTE | 2024-06-05 07:07 | W.PN.HOSP.TC ---
Today's Communication/Plan
-
Diet advanced, pain better
Hopefully discharge tomorrow
Assessment / Plan
Assessment / Plan
Physical Exam
General: Not in acute distress
HEENT: Normocephalic. Moist mucous membranes
Respiratory: Clear to Auscultation Bilaterally
Cardiac: S1/S2 and Regular Rate and Rhythm
GI: Soft and Tender (Mild throughout without rebound or guarding). Bowel sounds present.
Musculoskeletal: No Cyanosis and No Edema
Skin: Warm and Dry
Neuro: Awake, Alert, Oriented and Nonfocal/grossly intact
Psych: Calm
Assessment/Plan
53-year-old female with past medical history of endometriosis status post hysterectomy (TONE-BSO) 3 weeks prior to presentation, asthma, presenting with persistent abdominal pain since hysterectomy 3 weeks ago. Poor p.o. intake. Bouts of diarrhea.
CT abdomen pelvis shows ileal ileal intussusception, rounded soft tissue mass measuring 2 cm likely the lead point. A small polypoid mass can be identified within the small bowel loop and enlargement of this polyp/mass is likely resulted in the
intussusception. N.p.o. IV fluids. General surgery consulted.
Intussusception Status Post Laparoscopic assisted small bowel resection, lysis of adhesions, open appendectomy on 06/02/24
Suspected post-op ileus
-Consult General Surgery, appreciate their evaluation
-Diet advanced to Full Liquids
-Stop antibiotics
-Continue Zofran prn nausea
-Continue acetaminophen prn mild pain, and hydromorphone prn severe pain
-Stop Toradol as per surgery team
-Small volume free air seen beneath the dome of the right hemidiaphragm on x-ray -- discussed this with surgeon, and he said this is expected after her surgery
-Simethicone, PPI and pain meds
-Can do Ativan if still pain issue
-Out of bed and ambulate
Endometriosis s/p TONE-BSO ~3 weeks ago
DVT Prophylaxis: Lovenox
Code Status: Full Code
Anticipated Discharge: Within 24 hours
Subjective/Interval History
-
Date of Service: June 05, 2024
Patient was seen and examined. She reported doing better, abdominal pain was better.
Objective Data
-
Labs:
Laboratory Results
06/05/24
05:16
WBC 6.8
Hgb 8.8 L
Hct 26.9 L
Plt Count 364
Sodium 138
Potassium 4.0
Chloride 100
Carbon Dioxide 27
BUN 10
Creatinine 0.6
Glucose 73
Calcium 9.2
Vital Signs:
Vital Signs
Temp Pulse Resp BP Pulse Ox
98.2 F 73 17 109/58 98
06/05/24 00:04 06/05/24 00:04 06/05/24 00:04 06/05/24 00:04 06/05/24 00:04
I&O
06/04/24 06/05/24 06/06/24
06:59 06:59 06:59
Intake Total 1000 / 1000
Balance 1000 / 1000
[2024-06-05] MEDS: PROTONIX 20 MG PO (07:17)
[2024-06-05 07:27] VITALS: BP 136/86
--- NOTE | 2024-06-05 09:07 | W.PN.GS2 ---
Today's Communication / Plan
-
Full liquids.
Hold Toradol, recheck H&H this afternoon.
Assessment / Plan
-
Patient is a 53 yo F p/w partial SBO secondary to ileal intussusception related to an intra-luminal mass
POD#3 s/p laparoscopic assisted SBR, JUNE, and open appendectomy
AVSS
Labs with normal WBC, drift in Hb, normal lytes and kidney function
Likely expected post-op ileus; awaiting ROBF. Encourage ambulation.
-- Will advance to fulls
-- Pain control: Tylenol, IV Dilaudid PRN, stop Toradol
-- Recheck Hb this afternoon with type and screen
-- DVT: Lovenox
-- GI: PPI
-- OOB/ambulate, correct lytes
Time Spent
Total Time Spent with Patient (in minutes): 20
Subjective Data
-
Date of Service: June 05, 2024
Interval Events:
No acute events overnight. Slept well. Pain Controlled. Denies Nausea/Vomiting, +bowel function, passing some bloody stools. Tolerating diet.
Objective Data
-
Intake and Output
06/04/24 06/05/24 06/06/24
06:59 06:59 06:59
Intake Total 1000 / 1000
Balance 1000 / 1000
Intake:
IV fluids (Total) 1000 / 1000
Other:
Number of approximated MODERATE 3 2
amounts of urine
Vital Signs
Temp Pulse Resp BP Pulse Ox
98.2 F 79 14 136/86 99
06/05/24 07:27 06/05/24 07:27 06/05/24 07:27 06/05/24 07:27 06/05/24 07:27
Lab Results
06/05/24 05:16
Calcium 9.2 mg/dl (8.4-10.2) 06/05/24 05:16
Magnesium 2.0 mg/dl (1.6-2.3) 06/05/24 05:16
Total Bilirubin 0.5 mg/dl (0.2-1.3) 06/01/24 13:49
AST 22 U/L (14-36) 06/01/24 13:49
ALT 16 U/L (0-35) 06/01/24 13:49
Alkaline Phosphatase 85 U/L (38-126) 06/01/24 13:49
Total Protein 7.7 g/dl (6.3-8.2) 06/01/24 13:49
Albumin 4.8 g/dl (3.5-5.0) 06/01/24 13:49
Physical Exam
-
GENERAL/NEURO: Awake, Alert, no distress
CHEST: Unlabored breathing on RA
ABDOMEN: Soft, Non-Tender, Non-Distended, dressing still in place, incisions otherwise clean dry and intact.
Patient has a sultana catheter: No
Patient has a central line: No
[2024-06-05] MEDS: MYLICON 80 MG PO (09:48)
[2024-06-05] MEDS: ULTRAM 50 MG PO ×2 (10:20→22:51)
[2024-06-05 14:55] VITALS: BP 135/91
[2024-06-05 15:15] LABS: Hematocrit 30.3 % (37.0-47.0); Hemoglobin 10.1 g/dL (12.0-16.0)
[2024-06-05] MEDS: TYLENOL 650 MG PO (16:27)
[2024-06-05] MEDS: LOVENOX 40 MG SC (17:03)
[2024-06-05 23:00] VITALS: BP 132/86
[2024-06-06] MEDS: TYLENOL 650 MG PO ×2 (03:54→14:46)
[2024-06-06] MEDS: ULTRAM 50 MG PO ×2 (05:08→22:05)
--- NOTE | 2024-06-06 06:56 | W.PN.HOSP.TC ---
Today's Communication/Plan
-
Patient needs to tolerate solid foods AND have a non-bloody bowel movement in order for patient to be discharged
Assessment / Plan
Assessment / Plan
Physical Exam
General: Not in acute distress
HEENT: Normocephalic. Moist mucous membranes
Respiratory: Clear to Auscultation Bilaterally
Cardiac: S1/S2 and Regular Rate and Rhythm
GI: Soft and Tender (Mild throughout without rebound or guarding). Bowel sounds present.
Musculoskeletal: No Cyanosis and No Edema
Skin: Warm and Dry
Neuro: Awake, Alert, Oriented and Nonfocal/grossly intact
Psych: Calm
Assessment/Plan
53-year-old female with past medical history of endometriosis status post hysterectomy (TONE-BSO) 3 weeks prior to presentation, asthma, presenting with persistent abdominal pain since hysterectomy 3 weeks ago. Poor p.o. intake. Bouts of diarrhea.
CT abdomen pelvis shows ileal ileal intussusception, rounded soft tissue mass measuring 2 cm likely the lead point. A small polypoid mass can be identified within the small bowel loop and enlargement of this polyp/mass is likely resulted in the
intussusception. N.p.o. IV fluids. General surgery consulted.
Intussusception Status Post Laparoscopic assisted small bowel resection, lysis of adhesions, open appendectomy on 06/02/24
Suspected post-op ileus
-Consult General Surgery, appreciate their evaluation
-Diet advanced to Low Residue diet
-Antibiotics stopped previously
-Continue Zofran prn nausea
-Continue acetaminophen prn mild pain, and hydromorphone prn severe pain
-Stop Toradol as per surgery team
-Small volume free air seen beneath the dome of the right hemidiaphragm on x-ray -- discussed this with surgeon, and he said this is expected after her surgery
-Simethicone, PPI and pain meds
-Can do Ativan if still pain issue
-Out of bed and ambulate
-Patient needs to tolerate solid foods AND have a non-bloody bowel movement in order for patient to be discharged
Endometriosis s/p TONE-BSO ~3 weeks ago
DVT Prophylaxis: Lovenox
Code Status: Full Code
Anticipated Discharge: Today
Subjective/Interval History
-
Date of Service: June 06, 2024
Patient was seen and examined. She reported abdominal pain is whole lot better, PO intake still causes pain, has not had a normal bowel movement yet.
Objective Data
-
Labs:
Laboratory Results
06/06/24
06:00
WBC Pending
Hgb Pending
Hct Pending
Plt Count Pending
Sodium Pending
Potassium Pending
Chloride Pending
Carbon Dioxide Pending
BUN Pending
Creatinine Pending
Glucose Pending
Calcium Pending
Vital Signs:
Vital Signs
Temp Pulse Resp BP Pulse Ox
97.5 F 74 16 132/86 99
06/05/24 23:00 06/05/24 23:00 06/05/24 23:00 06/05/24 23:00 06/05/24 23:00
I&O
06/04/24 06/05/24 06/06/24
06:59 06:59 06:59
Intake Total 1000 / 1000 1140 / 1140
Balance 1000 / 1000 1140 / 1140
[2024-06-06 07:26] LABS: Hematocrit 27.7 % (37.0-47.0); Hemoglobin 9.1 g/dL (12.0-16.0); Mean Corp Hgb Conc. 32.9 g/dL (33.0-37.0); Mean Corpuscular Hgb 26.5 pg (27.0-31.0); Mean Corpuscular Volume 80.8 fL (81.0-99.0); Mean Platelet Volume 9.1 fL (7.4-10.4); Platelet Count 387 10^3/uL (130-400); Red Blood Cell Count 3.43 10^6/uL (4.20-5.40); Red Cell Dist. Width 13.8 % (11.5-14.5)
[2024-06-06 07:39] LABS: Blood Urea Nitrogen 7 mg/dl (7-17); Calcium 9.6 mg/dl (8.4-10.2); Carbon Dioxide 30 mmol/L (22-30); Chloride 99 mmol/L (98-107); Estimated Creatinine Clearance 78 ml/min; Glucose 85 mg/dl (70-99); Potassium 4.1 mmol/L (3.5-5.1); Sodium 139 mmol/L (135-145); eGFR > 60.00
[2024-06-06 07:51] VITALS: BP 121/75
[2024-06-06] MEDS: PROTONIX 20 MG PO (08:44)
[2024-06-06] MEDS: MYLICON 80 MG PO (09:06)
--- NOTE | 2024-06-06 10:54 | W.PN.GS2 ---
Today's Communication / Plan
-
-- LRD
-- Pain control: Tylenol, Toradol, IV Dilaudid PRN, stop Toradol
Assessment / Plan
-
Patient is a 53 yo F p/w partial SBO secondary to ileal intussusception related to an intra-luminal mass
POD#4 s/p laparoscopic assisted SBR, JUNE, and open appendectomy
AVSS
Labs with normal WBC, stable Hb, normal lytes and kidney function
Expected Ileus and limited anastomotic bleeding; appears resolved. Diet advancement to LRD.
-- LRD
-- Pain control: Tylenol, Toradol, IV Dilaudid PRN, stop Toradol
-- DVT: Lovenox
-- GI: PPI
-- OOB/ambulate, correct lytes
Subjective Data
-
Date of Service: June 06, 2024
No complaints or issues. Pain well-controlled. Less abdominal distention. Passing flatus, no further BMs. Afebrile. Ambulating. Voiding.
Objective Data
-
Intake and Output
06/05/24 06/06/24 06/07/24
06:59 06:59 06:59
Intake Total 1000 / 1000 1140 / 1620 480 / 480
Balance 1000 / 1000 1140 / 1620 480 / 480
Intake:
Oral fluids 1140 / 1620 480 / 480
IV fluids (Total) 1000 / 1000
Other:
Number of approximated MODERATE 2 5
amounts of urine
Number of approximated LARGE 2
amounts of urine
Vital Signs
Temp Pulse Resp BP Pulse Ox
98.3 F 73 22 121/75 99
06/06/24 07:51 06/06/24 07:51 06/06/24 07:51 06/06/24 07:51 06/06/24 07:51
Lab Results
06/06/24 06:57
06/06/24 06:57
Calcium 9.6 mg/dl (8.4-10.2) 06/06/24 06:57
Magnesium 2.0 mg/dl (1.6-2.3) 06/06/24 06:57
Total Bilirubin 0.5 mg/dl (0.2-1.3) 06/01/24 13:49
AST 22 U/L (14-36) 06/01/24 13:49
ALT 16 U/L (0-35) 06/01/24 13:49
Alkaline Phosphatase 85 U/L (38-126) 06/01/24 13:49
Total Protein 7.7 g/dl (6.3-8.2) 06/01/24 13:49
Albumin 4.8 g/dl (3.5-5.0) 06/01/24 13:49
Physical Exam
-
Gen: NAD
Abd: soft, NT, ND (improved), non-peritoneal, dressing with minimal shadowing
Patient has a sultana catheter: No
Patient has a central line: No
[2024-06-06 15:41] VITALS: BP 120/62
[2024-06-06] MEDS: LOVENOX 40 MG SC (17:09)
[2024-06-06 23:17] VITALS: BP 123/77
[2024-06-07] MEDS: TORADOL 15 MG IV (02:49)
[2024-06-07 06:08] LABS: Hemoglobin 9.3 g/dL (12.0-16.0); Mean Corp Hgb Conc. 33.2 g/dL (33.0-37.0); Mean Corpuscular Volume 81.2 fL (81.0-99.0); Mean Platelet Volume 9.4 fL (7.4-10.4); Platelet Count 414 10^3/uL (130-400); Red Blood Cell Count 3.45 10^6/uL (4.20-5.40); Red Cell Dist. Width 13.7 % (11.5-14.5); White Blood Cell Count 6.5 10^3/uL (4.8-10.8)
[2024-06-07 06:37] LABS: Blood Urea Nitrogen 7 mg/dl (7-17); Calcium 9.5 mg/dl (8.4-10.2); Carbon Dioxide 31 mmol/L (22-30); Chloride 100 mmol/L (98-107); Estimated Creatinine Clearance 78 ml/min; Glucose 78 mg/dl (70-99); Potassium 4.1 mmol/L (3.5-5.1); Sodium 139 mmol/L (135-145); eGFR > 60.00
[2024-06-07 07:38] VITALS: BP 107/69
[2024-06-07] MEDS: PROTONIX 20 MG PO (08:04)
[2024-06-07] MEDS: MYLICON 80 MG PO (08:05)
--- NOTE | 2024-06-07 09:52 | W.PN.GS2 ---
Addendum entered and electronically signed by Herminio Stallworth MD 06/07/24 13:46:
Patient seen and examined.
No complaints. Pain well-controlled. No nausea or vomiting. Passing large amounts of flatus and had a BM.
Gen: NAD
Abd: soft, NT/ND, non-peritoneal, incision c/d/i - no erythema, ecchymosis or drainage
Patient is a 53 yo F p/w partial SBO secondary to ileal intussusception related to an intra-luminal mass
POD#5 s/p laparoscopic assisted SBR, JUNE, and open appendectomy
AVSS
Labs with normal WBC, stable Hb,
Passing flatus, no further bloody stools, tolerating diet
-- LRD
-- Pain control: Tylenol, Toradol, Oxycodone prn
-- DVT: Lovenox
-- GI: PPI
-- OOB/ambulate
-- DC today
Original Note:
Today's Communication / Plan
-
dispo planning
Assessment / Plan
-
Patient is a 53 yo F p/w partial SBO secondary to ileal intussusception related to an intra-luminal mass
POD#5 s/p laparoscopic assisted SBR, JUNE, and open appendectomy
AVSS
Labs with normal WBC, stable Hb,
Passing flatus, no further bloody stools, tolerating diet
-- LRD
-- Pain control: Tylenol, Toradol, Oxycodone prn
-- DVT: Lovenox
-- GI: PPI
-- OOB/ambulate
OK to discharge from surgical standpoint
Subjective Data
-
Date of Service: June 07, 2024
Patient seen and examined at bedside with Dr. Stallworth. Denies n/v. Passing flatus. No Bm since yesterday. Minimal pain.
Objective Data
-
Intake and Output
06/06/24 06/07/24 06/08/24
06:59 06:59 06:59
Intake Total 1140 / 1620 2160 / 2160 480 / 480
Balance 1140 / 1620 2160 / 2160 480 / 480
Intake:
Oral fluids 1140 / 1620 2160 / 2160 480 / 480
Other:
Number of approximated MODERATE 5 6 3
amounts of urine
Number of approximated LARGE 2
amounts of urine
Vital Signs
Temp Pulse Resp BP Pulse Ox
98.2 F 74 22 107/69 99
06/07/24 07:38 06/07/24 07:38 06/07/24 07:38 06/07/24 07:38 06/07/24 07:38
Lab Results
06/07/24 05:18
06/07/24 05:18
Calcium 9.5 mg/dl (8.4-10.2) 06/07/24 05:18
Magnesium 2.0 mg/dl (1.6-2.3) 06/06/24 06:57
Total Bilirubin 0.5 mg/dl (0.2-1.3) 06/01/24 13:49
AST 22 U/L (14-36) 06/01/24 13:49
ALT 16 U/L (0-35) 06/01/24 13:49
Alkaline Phosphatase 85 U/L (38-126) 06/01/24 13:49
Total Protein 7.7 g/dl (6.3-8.2) 06/01/24 13:49
Albumin 4.8 g/dl (3.5-5.0) 06/01/24 13:49
Physical Exam
-
Gen: NAD
Abd: soft, NT, ND (improved), non-peritoneal, midline incision well approximated intact glue
Patient has a sultana catheter: No
Patient has a central line: No
--- NOTE | 2024-06-07 11:12 | W.DCSUMMARY ---
Discharge Summary
Discharge Data
Date of Admission: 06/01/24
Date of Discharge: 06/07/24
-
Pending Results: No
Hospital Course
53 years old female presented with abdominal pain. Patient had past medical history notable for endometriosis s/p robotic total abdominal hysterectomy with bilateral salpingo-oophorectomy approximately 3 weeks ago at [facility], s/p
x 2, and s/p partial thyroidectomy. Patient was evaluated by surgery. Scan showed ileal-ileal intussusception within the central and right pelvis. Rounded soft tissue mass measuring 2 cm, which is likely the lead point. Comparing to
prior CT examination of February 2023, in retrospect, a small polypoid mass can be identified within a small bowel loop, and enlargement of this polyp/mass has likely resulted in this intussusception. Patient underwent laparoscopic-assisted small
bowel resection, lysis of adhesions, open appendectomy by Dr Stallworth on 06/02. No complications reported. Patient was followed by surgery. She had bowel rest. Diet was advanced slowly to low residue diet. Blood work showed normal white blood
cell count and stable hemoglobin. Patient was passing flatus and had no further bloody stools. Surgery gave instructions and to discharge patient home with outpatient follow-up. Patient remained hemodynamically stable and was discharged home in a
stable condition.
Physical Exam
General: Not in acute distress
HEENT: Normocephalic. Moist mucous membranes
Respiratory: Clear to Auscultation Bilaterally
Cardiac: S1/S2 and Regular Rate and Rhythm
GI: Soft and not tender. Bowel sounds present.
Musculoskeletal: No Cyanosis and No Edema
Skin: Warm and Dry
Neuro: Awake, Alert, Oriented and Nonfocal/grossly intact
Psych: Calm
Total discharge time spent to see the patient, examine the patient, review data and lab results, discuss discharge plan with patient, surgery, nursing staff around 65 minutes
Discharge Plan
-
Patient Disposition: Home (Routine Discharge)
Discharge Diagnosis/Procedures: Partial SBO secondary to ileal intussusception related to an intra-luminal mass s/p laparoscopic assisted SBR, JUNE, and open appendectomy
Diet: As tolerated and Low Fiber
Activity: No strenuous activity
Additional Activity: Do not lift over 15lbs for the next 2-4 weeks
Bathing Restrictions: OK to Shower
Wound Care: Wash your incisions gently with soap and water. Avoid scrubbing or picking off the glue. Do not soak in a tub or pool for the next 2 weeks
Activity Restrictions/Additional Instructions:
Call your surgeon if you have nausea with vomiting, worsening pain or a fever >100.4
Referrals:
Herminio Stallworth MD [Active] - in two to four weeks
Daisy Freeman MD, Resident [Family Provider] -
Prescriptions:
Continued
cetirizine 10 mg Tablet
10 mg PO DAILY
tramadol 50 mg Tablet
50 mg PO Q6HPRN PRN (Reason: moderate pain)
ascorbic acid (vitamin C) [Vitamin C] 500 mg Tablet
500 mg PO DAILY
acyclovir 5 % Ointment
1 applic TOPICAL DAILYPRN PRN (Reason: cold sores)
ferrous sulfate 325 mg (65 mg iron) Tablet
325 mg PO DAILY
alum-mag hydroxide-simeth 200-200-20 mg/5 mL Suspension
10 ml PO Q3HPRN PRN (Reason: gas)
estradiol 0.01 % (0.1 mg/gram) Cream
1 appful VAGINAL SUWE
simethicone 80 mg Tablet,Chewable
80 mg PO Q3HPRN PRN (Reason: gas)
Discontinued
ibuprofen 600 mg Tablet
600 mg PO Q6HPRN PRN (Reason: mild pain)
Discharge Orders:
Discharge Patient (As Directed); Ordered 06/07/24
Ordered By: Maxime Landry
Discharge Date and Time
Print Language: WOLOF
--- NOTE | 2024-06-07 11:31 | CM ---
Met with patient and spouse; VN offered and declined
Plan: discharge to home today; spouse will transport; no needs
[2024-06-07 12:15] VITALS: BP 120/62
== END 2024-06-07 12:13 | disposition home or self-care (01) | DRG 330 ==
LOC: 3 WEST ACU 19:27
PROVIDERS: Hospitalist; Physician Assistant; Physician Assistant Medical; Registered Nurse; ADMITTING PHYSICIAN Hospitalist; ATTENDING PHYSICIAN Internal Medicine; EMERGENCY PHYSICIAN Emergency Medicine; FAMILY PHYSICIAN Student in an Organized Health Care Education/Training Program; OTHER PHYSICIAN Surgery
PROC: 0DTJ0ZZ Resection of Appendix, Open Approach (ICD-10-PCS; 2024-06-02)
PROC: 0DB84ZZ Excision of Small Intestine, Percutaneous Endoscopic Approach (ICD-10-PCS; 2024-06-02)
DX: K56.1 Intussusception (principal); K91.89 Other postprocedural complications and disorders of digestive system; N80.9 Endometriosis, unspecified; K56.51 Intestinal adhesions [bands], with partial obstruction; K56.600 Partial intestinal obstruction, unspecified as to cause; Z87.891 Personal history of nicotine dependence
CPT/HCPCS: 88304; 88307; 71046; 74019; 74177; 80048; 80053; 83690; 83735; 85014; 85018; 85025; 85027; 86850; 86900; 86901; 88341; 88342; 96361; 96374; 96375; 99284; C1776; Q9967

== ENCOUNTER → 2025-01-18 14:56 | Outpatient (REF) | payer OTHER, SELFPAY | LOC: WDC 14:56 | PROVIDERS: ATTENDING PHYSICIAN Nurse Practitioner Adult Health | DX: Z12.31 Encounter for screening mammogram for malignant neoplasm of breast (principal) | CPT/HCPCS: 77063; 77067 ==